=== PATIENT | male | born 1995 | race Two or more races ===

== ENCOUNTER 2017-01-14 07:51 | Emergency (ER) | payer SELFPAY ==
[~2017-01-14] VITALS: Ht 167.6 cm; Wt 104.9 kg
[2017-01-14 09:01] LABS: CALCIUM 9.2 mg/dL (8.5-10.1); CARBON DIOXIDE 25.2 mmol/L (21-32); CHLORIDE SERUM 102 mmol/L (98-107); CREATININE SERUM 1.1 mg/dL (0.7-1.3); GFR1 > 60 mL/min; GLUCOSE SERUM 104 mg/dL (74-106); POTASSIUM SERUM 3.9 mmol/L (3.5-5.1); SODIUM SERUM 140 mmol/L (136-145)
[2017-01-14 09:05] LABS: ALBUMIN 4.4 g/dL (3.4-5.0); ALKALINE PHOSPHATASE 68 U/L (46-116); ALT/SGPT 85 U/L (16-63); AST/SGOT 37 U/L (15-37); BILIRUBIN TOTAL 0.61 mg/dL (0.20-1.00)
[2017-01-14 09:07] LABS: TOTAL PROTEIN, SERUM 8.4 g/dL (6.4-8.2)
[2017-01-14 09:41] LABS: BASOPHIL % 0.4 % (0-2); PLATELET COUNT 352 x10^3mcL (130-400); RED CELL DISTRIBUTION WIDTH 12.8 % (11.5-14.5)
[2017-01-14 10:12] LABS: AMPHETAMINE QUAL UR NONE DETECTED (NEG <=1000)
[2017-01-14 11:05] VITALS: BP 122/68
== END 2017-01-14 11:05 | disposition home or self-care (01) ==
LOC: ED 07:51
PROVIDERS: Emergency Medicine
DX: F41.9 Anxiety disorder, unspecified (principal)
CPT/HCPCS: 36415; G0480